=== PATIENT | female | born 1960 | race Caucasian/White ===

== ENCOUNTER 2017-02-04 08:14 | Day surgery (SDC) | payer OTHER ==
[~2017-02-04] VITALS: Ht 160 cm; Wt 54.3 kg
[~2017-02-04 08:14] MED LIST: ACET500C5 PO; ASPI-664 PO; BENA10TA48 PO; CLIN-73 PO; LEVO50TA71 PO
[2017-02-04 09:10] VITALS: Ht 160 cm; Wt 54.3 kg
[2017-02-04] MEDS ORDERED: amlodipine PO (09:16)
[2017-02-04 09:58] VITALS: BP 166/81; PULSE 73; RESP 18
[2017-02-04] MEDS ORDERED: MIDAZOLAM 1 MG/ML 2 ML INJ ONE (10:35)
[2017-02-04] MEDS ORDERED: FENTAnyl 50 MCG/ML VIAL ONE (10:35)
--- NOTE | 2017-02-04 10:56 | GILP ---
DATE OF PROCEDURE: 02/04/2017 NAME OF PROCEDURE: Colonoscopy. SURGEON: Adriana Hernandes MD PREOPERATIVE DIAGNOSIS: History of colon cancer. POSTOPERATIVE DIAGNOSES 1. Colonoscopy all the way to the cecum. 2. Poor prep, making the exam suboptimal. 3. No gross neoplasm was identified. 4. Internal hemorrhoids. INDICATION FOR THE PROCEDURE: Ms. Margarita Kerns is a 56-year-old female patient who had history of re ctal cancer for which she has undergone radiation and surgery. The patient was scheduled for a foll owup colonoscopy. The procedure and possible complications were well explained to the patient, she understood and cons ented to the procedure. DESCRIPTION OF PROCEDURE: Under the influence of fentanyl and Versed, the colonoscope was carefully introduced in the rectum and under direct vision, it was advanced all the way to the cecum. FINDINGS: The patient had poor prep making the exam somewhat suboptimal. She was noted to have int ernal hemorrhoids. No gross neoplasm was identified. She tolerated the procedure very well and there was no complication from the procedure. At the end of the procedure, she was awake with stable vital signs and she was discharged home to the care of h er family. IMPRESSION: 1. Colonoscopy all the way to the cecum. 2. Poor prep making the exam suboptimal. 3. Internal hemorrhoids. 4. No gross neoplasm was identified. PLAN: Because of the poor prep and suboptimal nature of the examination, would recommend next colon oscopy within 2 years. Dictated By: ADRIANA HERNANDES MD GD/NTS Conf#: [id number] DID#: [id number] CC: ADRIANA HERNANDES MD;*EndCC*
[2017-02-04 11:00] VITALS: BP 133/82; RESP 20
== END 2017-02-04 13:10 | disposition home or self-care (01) ==
LOC: GIL 08:14
PROVIDERS: ATTEND Internal Medicine Gastroenterology
DX: Z85.038 Personal history of other malignant neoplasm of large intestine (principal); K64.8 Other hemorrhoids
CPT/HCPCS: 45378; J2250; J3010; Z7610

== ENCOUNTER 2018-03-31 08:12 | Day surgery (SDC) | END 2018-03-31 13:02 | disposition home or self-care (01) ==